=== PATIENT | male | born 1945 | race Caucasian/White ===

== ENCOUNTER 2018-05-24 10:40 | Emergency (ER) | payer MEDICARE ==
[~2018-05-24] VITALS: Ht 175.3 cm; Wt 113.4 kg
--- OUTSIDE RECORDS SUMMARY | 2018-05-24 11:08 | XMS REPORT | Clinical Summary ---
Author Author MAILE [facility] Address Unknown Phone Unavailable Care Team Providers Care Cyber Defense Analyst Name Role Phone Dhaval Bush Jigna PCP Allergies No Known Allergies Medications End Date Status Medication Sig Dispensed Refills Start Date Active acetaminophen-codeine TK 1 T PO Q 4 5 (TYLENOL #3) 300-30 mg H PRF PAIN 8 per tablet Active allopurinol (ZYLOPRIM) TK 1 T PO D 2 300 MG tablet 8 Active diclofenac (VOLTAREN) 75 TK 1 T PO PRN 6 MG EC tablet 8 Active glipiZIDE-metFORMIN TK 1 T PO BID 3 (METAGLIP) 5-500 mg per B MEALS 8 tablet Active mupirocin (BACTROBAN) 2 % LEVON EXT AA 6 ointment BID 8 Active propranolol (INDERAL) 20 TK 1 T PO BID 2 MG tablet 8 Active spironolactone TK 1 T PO D 4 (ALDACTONE) 25 MG tablet 8 Active tamsulosin (FLOMAX) 0.4 Take 1 60 capsule 0 mg Cp24 24 hr capsule capsule (0.4 8 mg total) by mouth nightly. 01/24/2018 traZODone (DESYREL) 100 Take 1 tablet 60 tablet 1 MG tablet (100 mg 8 total) by mouth nightly for 30 days. Active Problems Problem Noted Date Altered mental status, unspecified altered mental status type 12/22/2017 Encounters Care Team Description Date Type Specialty Alejandra Singh MD Rehman, Javed, MD Zalavarria, Jonard Herbias, MD Altered mental status, unspecified altered mental status type (Primary Dx); Contusion of left hip, initial encounter; Contusion of left shoulder, initial encounter; Fall, initial encounter 12/22/2017 [facility] Cardiology - Encounter 12/25/2017 after 05/23/2017 Social History Date Tobacco Use Types Packs/Day Years Used Never Smoker Smokeless Tobacco: Never Used Tobacco Cessation: Counseling Given: No Alcohol Use Drinks/Week oz/Week Comments Yes 4 Shots of 2.4 liquor Sex Assigned at Date Recorded Not on file Industry Job Start Date Occupation Not on file Not on file Not on file Travel End Travel History Travel Start No recent travel history available. Last Filed Vital Signs Time Taken Vital Sign Reading 12/25/2017 7:04 AM CDT Blood Pressure 121/59 12/25/2017 7:04 AM CDT Pulse 74 12/25/2017 7:04 AM CDT Temperature 36.3 C (97.4 F) 12/25/2017 7:04 AM CDT Respiratory Rate 16 12/25/2017 7:04 AM CDT Oxygen Saturation 95% - Inhaled Oxygen - Concentration 12/22/2017 7:41 PM CDT Weight 109.9 kg (242 lb 4.8 oz) 12/22/2017 7:41 PM CDT Height 172.7 cm (5' 8") 12/22/2017 7:41 PM CDT Body Mass Index 36.84 Plan of Treatment Not on file Procedures Comments Procedure Name Priority Date/Time Associated Diagnosis RHYTHM STRIP - SCAN 12/26/2017 1:30 PM CDT POCT-GLUCOSE METER Routine 12/25/2017 7:11 AM CDT POCT-GLUCOSE METER Routine 12/24/2017 9:08 PM CDT POCT-GLUCOSE METER Routine 12/24/2017 5:13 PM CDT POCT-GLUCOSE METER Routine 12/24/2017 11:16 AM CDT POCT-GLUCOSE METER Routine 12/24/2017 7:58 AM CDT POCT-GLUCOSE METER Routine 12/23/2017 9:40 PM CDT POCT-GLUCOSE METER Routine 12/23/2017 5:06 PM CDT STOOL PATH CHARGE Routine 12/23/2017 3:20 PM CDT SHIGA TOXIN SCREEN Routine 12/23/2017 3:20 PM CDT STOOL CULTURE + SHIGA Routine 12/23/2017 TOXIN 3:20 PM CDT FECAL LEUKOCYTES Routine 12/23/2017 3:20 PM CDT C. DIFFICILE GDH TOXIN Routine 12/23/2017 3:20 PM CDT POCT-GLUCOSE METER Routine 12/23/2017 11:36 AM CDT POCT-GLUCOSE METER Routine 12/23/2017 7:53 AM CDT CBC W/PLT COUNT & AUTO Routine 12/23/2017 DIFFERENTIAL 5:11 AM CDT BASIC METABOLIC PANEL (7) Routine 12/23/2017 5:11 AM CDT CBC W/PLT COUNT & AUTO Routine 12/23/2017 DIFFERENTIAL 5:11 AM CDT HEPATIC FUNCTION PANEL Routine 12/23/2017 5:11 AM CDT CBC W/PLT COUNT & AUTO Routine 12/22/2017 DIFFERENTIAL 11:50 PM CDT CBC W/PLT COUNT & AUTO Routine 12/22/2017 DIFFERENTIAL 11:50 PM CDT BLOOD CULTURE Routine 12/22/2017 11:50 PM CDT BLOOD CULTURE Routine 12/22/2017 11:40 PM CDT URINALYSIS W/ MICROSCOPIC Routine 12/22/2017 10:51 PM CDT URINE CULTURE Routine 12/22/2017 10:51 PM CDT POCT-GLUCOSE METER Routine 12/22/2017 9:11 PM CDT US ABDOMEN COMPLETE STAT 12/22/2017 7:[address] BRAIN WITHOUT IV STAT 12/22/2017 CONTRAST 3:[address] LOWER EXTREMITY STAT 12/22/2017 WITHOUT CONTRAST LEFT 3:26 PM CDT CBC W/PLT COUNT & AUTO STAT 12/22/2017 DIFFERENTIAL 1:42 PM CDT HEPATIC FUNCTION PANEL STAT 12/22/2017 1:42 PM CDT CBC W/PLT COUNT & AUTO STAT 12/22/2017 DIFFERENTIAL 1:42 PM CDT BASIC METABOLIC PANEL (7) STAT 12/22/2017 1:42 PM CDT URINALYSIS W/ MICROSCOPIC STAT 12/22/2017 1:41 PM CDT XR CHEST 1 VIEW STAT 12/22/2017 PORTABLE/BEDSIDE 12:23 PM CDT XR SHOULDER LEFT COMPLETE STAT 12/22/2017 MIN 2 VIEWS 12:19 PM CDT XR HIP LEFT 2 VIEW STAT 12/22/2017 12:15 PM CDT XR PELVIS 1 OR 2 VIEWS STAT 12/22/2017 12:10 PM CDT after 05/23/2017 Results * RHYTHM STRIP - SCAN (12/26/2017 1:30 PM CDT) Narrative Performed At * POC-Glucose meter (12/25/2017 7:11 AM CDT) Only the most recent of 10 results within the time period is included. POC-Glucose Meter 100Comment: TESTED AT [facility] 70 - 110 mg/dL [place] [id number] [facility] Specimen Blood Performing Organization Address City/State/Zipcode Phone Number [address] [phone] [facility] * Clostridium difficile GDH Toxin (12/23/2017 3:20 PM CDT) C. Difficle Toxin Negative Negative [facility] C. Difficile GDH Antigen NegativeComment: No indication Negative [facility] of Clostridium difficile [facility] infection and no colonization. Discontinue enteric isolation and therapy. Specimen Stool - Rectum Narrative Performed At Testing performed by [employer] Rapid Cassette Assay.For GDH, published [facility] sensitivity of the assay is 98.7% compared to cytotoxicity testing.For Toxin [facility], published sensitivity is 87.8% and specificity 99.4% compared to cytotoxicity testing. Verification of kit performance was done by the [facility] Microbiology Lab prior to clinical use. Performing Organization Address City/[facility] Cent[facility] Phone Number [address] * STOOL PATH CHARGE (12/23/2017 3:20 PM CDT) Pathogen exam charged Done [facility] Specimen Stool - Rectum Performing Organization Address City/[facility] Centercode Phone Number [place] [phone] [place] [address] * Shiga Toxin Screen (12/23/2017 3:20 PM CDT) Shiga toxin 1 Not detected Not detected [facility] Shiga toxin 2 Not detected Not detected [facility] Specimen Stool - Rectum Performing Organization Address City/[facility] Centercode Phone Number [place] [phone] * Fecal leukocytes (12/23/2017 3:20 PM CDT) Fecal Leukocytes No fecal leukocytes seen No fecal leukocytes seen [facility] Specimen Stool - Rectum Performing Organization Address [facility] Centercode Phone Number [address] [address] [phone] [place] [address] * CBC with platelet count + automated diff (12/23/2017 5:11 AM CDT) Only the most recent of 3 results within the time period is included. WBC 6.6 3.5 - 10.5 K/L [facility] RBC 3.00 (L) 4.63 - 6.08 M/L [facility] Hemoglobin 10.5 (L) 13.7 - 17.5 GM/DL [facility] Hematocrit 31.4 (L) 40.1 - 51.0 % [facility] MCV 104.7 (H) 79.0 - 92.2 fL [facility] MCH 35.0 (H) 25.7 - 32.2 pg [facility] MCHC 33.4 32.3 - 36.5 GM/DL [facility] RDW 14.6 (H) 11.6 - 14.4 % [facility] Platelets 138 (L) 150 - 450 K/CU MM [facility] MPV 9.9 9.4 - 12.4 fL [facility] nRBC 0 0 - 0 /100 WBC [facility] % Neutros 61 % [facility] % Lymphs 23 % [facility] % Monos 15 % [facility] % Eos 0 % [facility] % Baso 1 % [facility] # Neutros 4.04 1.78 - 5.38 K/L [facility] # Lymphs 1.51 1.32 - 3.57 K/L [facility] # Monos 0.95 (H) 0.30 - 0.82 K/L [facility] # Eos 0.01 (L) 0.04 - 0.54 K/L [facility] # Baso 0.04 0.01 - 0.08 K/L [facility] Immature 0 0 - 1 % [facility] Granulocytes-[facility] Specimen Blood - Line, Venous Performing Organization Address City/[facility]/Zipcode Phone Number [facility] [address] [place] [address] [facility] * Hepatic function panel (12/23/2017 5:11 AM CDT) Only the most recent of 2 results within the time period is included. Protein, Total 5.7 (L) 6.0 - 8.3 gm/dL [facility] Albumin 3.0 (L) 3.5 - 5.0 g/dL [facility] Total Bilirubin 2.6 (H) 0.2 - 1.2 mg/dL [facility] Bilirubin, Direct 0.9 (H) 0.1 - 0.5 mg/dL [facility] Alkaline Phosphatase 61 40 - 150 U/L [facility] AST 319 (H) 5 - 34 U/L [facility] ALT 82 (H) 6 - 55 U/L [facility] Specimen Blood - Line, Venous Narrative Performed At Specimen slightly icteric [facility] Performing Organization Address City/[facility]/Zipcode Phone Number [facility] [address] [place] [address] [facility] * Basic Metabolic Panel (12/23/2017 5:11 AM CDT) Only the most recent of 2 results within the time period is included. Sodium 134 (L) 136 - 145 meq/L [facility] Potassium 4.0 3.5 - 5.1 meq/L [facility] Chloride 104 98 - 107 meq/L [facility] CO2 21 (L) 22 - 29 meq/L [facility] BUN 27 (H) 7 - 21 mg/dL [facility] Creatinine 0.78 0.57 - 1.25 mg/dL [facility] Glucose 91 70 - 105 mg/dL [facility] Calcium 8.3 (L) 8.4 - 10.2 mg/dL [facility] EGFR 98Comment: ESTIMATED GFR IS mL/min/1.73 sq m [facility] NOT ACCURATE CREATININE [facility] CLEARANCE IN PREDICTING GLOMERULAR FILTRATION RATE. ESTIMATED GFR IS NOT APPLICABLE FOR DIALYSIS PATIENTS. Specimen Blood - Line, Venous Narrative Performed At Specimen slightly icteric [facility] Performing Organization Address City/[facility] Centercode Phone Number [address] [phone] [facility] * Blood culture (12/22/2017 11:50 PM CDT) Only the most recent of 2 results within the time period is included. Result No growth in 5 days [facility] Specimen Blood - Arm, Right Performing Organization Address [facility]/Zipcode Phone Number [address] [phone] [facility] * Urinalysis w/Microscopic (12/22/2017 10:51 PM CDT) Only the most recent of 2 results within the time period is included. Color, UA Yellow [facility] Clarity, UA Clear [facility] Specific [place], UA 1.022 1.001 - 1.035 [facility] pH, UA 5.5 5.0 - 8.0 [facility] Protein, UA 20 mg/dL (A) Negative [facility] Glucose, UA Negative Negative [facility] Ketones, UA Negative Negative [facility] Bilirubin, UA Negative Negative [facility] Blood, UA Negative Negative [facility] Nitrite, UA Negative Negative [facility] Leukocytes, UA Negative Negative [facility] Urobilinogen, UA 2.0 (H) 0.2 - 1.0 mg/dL [facility] RBC, UA <1 /HPF [facility] WBC, UA 3 /HPF [facility] Mucus Many [facility] Squam Epithel, UA <1 /HPF [facility] Hyaline Casts, UA 7 /LPF [facility] Casts 2 /LPF [facility] Specimen Source Urine, [place] [facility] Specimen Urine - Urine, [place] Performing Organization Address City/State/Zipcode Phone Number [address] * Urine culture (12/22/2017 10:51 PM CDT) Result No growth [facility] Specimen Urine - Urine, [place] Performing Organization Address City/State/Zipcode Phone Number [address] * US abdomen complete (12/22/2017 7:11 PM CDT) Narrative Performed At FINAL REPORT [facility] Ultrasound of the abdomen. Clinical History: HIP PAIN. Comparison study: None. Findings: The liver is normal in echotexture with no focal masses. It measures 15.6 cm in length. There is no evidence of intra or extrahepatic biliary dilatation with the common bile duct measuring six mm. The main portal vein diameter is 1.5 cm. The gallbladder has been resected. The spleen measures 11.4 cm and is unremarkable. The pancreas is within normal limits. No ascites is present. The right kidney measures 10.6 cm and left kidney measures 11.2 cm, both within normal limits. The proximal aorta and IVC are unremarkable. No pleural effusions are seen. Impression: 1. Unremarkable abdominal ultrasound. Signed: Charles Hurtado MD Report Verified Date/Time:12/22/2017 19:52:10 Reading Location: [facility] B1 [id number] Consult Reading Room Procedure Note Interface, External Ris In - 12/22/2017 7:54 PM CDT FINAL REPORT Ultrasound of the abdomen. Clinical History: HIP PAIN. Comparison study: None. Findings: The liver is normal in echotexture with no focal masses. It measures 15.6 cm in length. There is no evidence of intra or extrahepatic biliary dilatation with the common bile duct measuring six mm. The main portal vein diameter is 1.5 cm. The gallbladder has been resected. The spleen measures 11.4 cm and is unremarkable. The pancreas is within normal limits. No ascites is present. The right kidney measures 10.6 cm and left kidney measures 11.2 cm, both within normal limits. The proximal aorta and IVC are unremarkable. No pleural effusions are seen. Impression: 1. Unremarkable abdominal ultrasound. Signed: Charles Hurtado MD Report Verified Date/Time: 12/22/2017 19:52:10 Reading Location: [facility] B1 [id number] Consult Reading Room Performing Organization Address City/State/Zipcode Phone Number [facility] * CT lower extremity without IV contrast left (12/22/2017 3:26 PM CDT) Narrative Performed At FINAL REPORT [facility] CT OF THE LEFT HIP HISTORY: Left hip pain status post fall COMPARISON: Left hip and pelvic radiographs from earlier today TECHNIQUE: CT of the left hip was performed without contrast. Axial images were generated as were multiplanar reformatted images in the sagittal and coronal planes. The examination was performed to conform to our departmental dose optimization program which includes automated exposure control, adjustment of the mA and/or kV according to patient size and/or use of iterative reconstruction techniques. FINDINGS: No fracture or dislocation are visualized in the left hip. There are mild changes of osteoarthritis in the left hip. No pelvic fracture is identified. There are partially imaged degenerative changes in the lower lumbar spine. There is mild symmetric arthrosis of the sacroiliac joints. No destructive bone lesion is identified. No fluid collections are visualized around the left hip. No intrapelvic fluid collection is visualized. Numerous sigmoid diverticula are noted, without specific CT evidence of acute diverticulitis. IMPRESSION: 1. No CT evidence of a left hip fracture. Signed: Pablo Blank MD Report Verified Date/Time:12/22/2017 15:47:42 Reading Location: [facility] Radiology Reading Room Procedure Note Interface, External Ris In - 12/22/2017 3:[address] FINAL REPORT CT OF THE LEFT HIP HISTORY: Left hip pain status post fall COMPARISON: Left hip and pelvic radiographs from earlier today TECHNIQUE: CT of the left hip was performed without contrast. Axial images were generated as were multiplanar reformatted images in the sagittal and coronal planes. The examination was performed to conform to our departmental dose optimization program which includes automated exposure control, adjustment of the mA and/or kV according to patient size and/or use of iterative reconstruction techniques. FINDINGS: No fracture or dislocation are visualized in the left hip. There are mild changes of osteoarthritis in the left hip. No pelvic fracture is identified. There are partially imaged degenerative changes in the lower lumbar spine. There is mild symmetric arthrosis of the sacroiliac joints. No destructive bone lesion is identified. No fluid collections are visualized around the left hip. No intrapelvic fluid collection is visualized. Numerous sigmoid diverticula are noted, without specific CT evidence of acute diverticulitis. IMPRESSION: 1. No CT evidence of a left hip fracture. Signed: Pablo Blank MD Report Verified Date/Time: 12/22/2017 15:47:42 Reading Location: [facility] Radiology Reading Room Performing Organization Address City/State/Zipcode Phone Number [facility] * CT brain without IV contrast (12/22/2017 3:26 PM CDT) Narrative Performed At FINAL REPORT [facility] CT head without contrast 12/22/2017 3:18 PM CLINICAL HISTORY: Confusion/delirium, altered LOC, unexplained HIP PAIN TECHNIQUE: Axial noncontrast CT images through the head were obtained. This examination was performed according to our departmental dose optimization program, which includes automated exposure control, adjustment of the mA and/or kV according to patient size, and/or use of iterated reconstruction technique. COMPARISON: None available FINDINGS: There is no hemorrhage, extra-axial collection, mass, hydrocephalus, or midline shift. There is mild microvascular ischemia in the supratentorial white matter. There is atherosclerotic calcification of the intracranial arterial vasculature. There is generalized parenchymal volume loss. The visualized paranasal sinuses and mastoid air cells are well aerated. The skull is intact. IMPRESSION: No intracranial hemorrhage or mass effect. Chronic appearing microvascular and involutional changes. If concern for acute pathology persists, further evaluation with MRI is recommended. Signed: Haile Dempsey MD Report Verified Date/Time:12/22/2017 15:24:16 Reading Location: [facility] Radiology Reading Room Procedure Note Interface, External Ris In - 12/22/2017 3:26 PM CDT FINAL REPORT CT head without contrast 12/22/2017 3:18 PM CLINICAL HISTORY: Confusion/delirium, altered LOC, unexplained HIP PAIN TECHNIQUE: Axial noncontrast CT images through the head were obtained. This examination was performed according to our departmental dose optimization program, which includes automated exposure control, adjustment of the mA and/or kV according to patient size, and/or use of iterated reconstruction technique. COMPARISON: None available FINDINGS: There is no hemorrhage, extra-axial collection, mass, hydrocephalus, or midline shift. There is mild microvascular ischemia in the supratentorial white matter. There is atherosclerotic calcification of the intracranial arterial vasculature. There is generalized parenchymal volume loss. The visualized paranasal sinuses and mastoid air cells are well aerated. The skull is intact. IMPRESSION: No intracranial hemorrhage or mass effect. Chronic appearing microvascular and involutional changes. If concern for acute pathology persists, further evaluation with MRI is recommended. Signed: Haile Dempsey MD Report Verified Date/Time: 12/22/2017 15:24:16 Reading Location: [facility] Radiology Reading Room Performing Organization Address City/State/Zipcode Phone Number [employer] [facility] * XR chest 1 view portable / bedside (12/22/2017 12:23 PM CDT) Narrative Performed At FINAL REPORT [facility] Chest one view INDICATION: Chest pain COMPARISON: None available IMPRESSION: There is no focal consolidation, vascular congestion, pleural effusion, or pneumothorax. The cardiac silhouette is prominent. The aorta is mildly ectatic/tortuous. There are degenerative spine changes. Signed: Brayden Pollock MD Report Verified Date/Time:12/22/2017 12:41:56 Reading Location: [facility] Radiology Reading Room Procedure Note Interface, External Ris In - 12/22/2017 1:18 PM CDT FINAL REPORT Chest one view INDICATION: Chest pain COMPARISON: None available IMPRESSION: There is no focal consolidation, vascular congestion, pleural effusion, or pneumothorax. The cardiac silhouette is prominent. The aorta is mildly ectatic/tortuous. There are degenerative spine changes. Signed: Brayden Pollock MD Report Verified Date/Time: 12/22/2017 12:41:56 Reading Location: [facility] Radiology Reading Room Performing Organization Address City/State/Zipcode Phone Number [facility] * XR shoulder complete 2 views min left (12/22/2017 12:19 PM CDT) Narrative Performed At FINAL REPORT [facility] LEFT SHOULDER 3 VIEWS HISTORY: Left shoulder pain status post fall COMPARISON: None FINDINGS: AP internal and external rotation images and a transscapular Y image of the left shoulder were obtained. No fracture or dislocation are visualized in the left shoulder. Mild acromioclavicular joint and glenohumeral joint osteoarthritis. IMPRESSION: 1. No fracture or dislocation are visualized in the left shoulder. Signed: Pablo Blank MD Report Verified Date/Time:12/22/2017 13:07:59 Reading Location: [facility] Radiology Reading Room Procedure Note Interface, External Ris In - 12/22/2017 1:19 PM CDT FINAL REPORT LEFT SHOULDER 3 VIEWS HISTORY: Left shoulder pain status post fall COMPARISON: None FINDINGS: AP internal and external rotation images and a transscapular Y image of the left shoulder were obtained. No fracture or dislocation are visualized in the left shoulder. Mild acromioclavicular joint and glenohumeral joint osteoarthritis. IMPRESSION: 1. No fracture or dislocation are visualized in the left shoulder. Signed: Pablo Blank MD Report Verified Date/Time: 12/22/2017 13:07:59 Reading Location: [facility] Radiology Reading Room Performing Organization Address City/State/Zipcode Phone Number [facility] * XR hip 2 views left (12/22/2017 12:15 PM CDT) Narrative Performed At FINAL REPORT [facility] AP PELVIS, LEFT HIP 2 VIEWS HISTORY: Status post fall with left hip and pelvic pain COMPARISON: None FINDINGS: 2 AP images of the pelvis and AP and lateral images of the left hip were obtained. No fracture or dislocation are visualized in the left hip. Small left femoral head osteophytes. No joint space narrowing in the left hip. No pelvic fracture is identified. No abnormalities are visualized in the symphysis pubis. Mild symmetric arthrosis of the sacroiliac joints. IMPRESSION: 1. No evidence of a pelvic fracture. 2. No fracture or dislocation are visualized in the left hip. Signed: Pablo Blank MD Report Verified Date/Time:12/22/2017 13:10:30 Reading Location: [facility] Radiology Reading Room Procedure Note Interface, External Ris In - 12/22/2017 1:31 PM CDT FINAL REPORT AP PELVIS, LEFT HIP 2 VIEWS HISTORY: Status post fall with left hip and pelvic pain COMPARISON: None FINDINGS: 2 AP images of the pelvis and AP and lateral images of the left hip were obtained. No fracture or dislocation are visualized in the left hip. Small left femoral head osteophytes. No joint space narrowing in the left hip. No pelvic fracture is identified. No abnormalities are visualized in the symphysis pubis. Mild symmetric arthrosis of the sacroiliac joints. IMPRESSION: 1. No evidence of a pelvic fracture. 2. No fracture or dislocation are visualized in the left hip. Signed: Pablo Blank MD Report Verified Date/Time: 12/22/2017 13:10:30 Reading Location: [facility] Radiology Reading Room Performing Organization Address City/[facility] Phone Number [facility] * XR pelvis 1 or 2 views (12/22/2017 12:10 PM CDT) Narrative Performed At FINAL REPORT GE RIS AP PELVIS, LEFT HIP 2 VIEWS HISTORY: Status post fall with left hip and pelvic pain COMPARISON: None FINDINGS: 2 AP images of the pelvis and AP and lateral images of the left hip were obtained. No fracture or dislocation are visualized in the left hip. Small left femoral head osteophytes. No joint space narrowing in the left hip. No pelvic fracture is identified. No abnormalities are visualized in the symphysis pubis. Mild symmetric arthrosis of the sacroiliac joints. IMPRESSION: 1. No evidence of a pelvic fracture. 2. No fracture or dislocation are visualized in the left hip. Signed: Pablo Blank MD Report Verified Date/Time:12/22/2017 13:10:30 Reading Location: [facility] Radiology Reading Room Procedure Note Interface, External Ris In - 12/22/2017 1:31 PM CDT FINAL REPORT AP PELVIS, LEFT HIP 2 VIEWS HISTORY: Status post fall with left hip and pelvic pain COMPARISON: None FINDINGS: 2 AP images of the pelvis and AP and lateral images of the left hip were obtained. No fracture or dislocation are visualized in the left hip. Small left femoral head osteophytes. No joint space narrowing in the left hip. No pelvic fracture is identified. No abnormalities are visualized in the symphysis pubis. Mild symmetric arthrosis of the sacroiliac joints. IMPRESSION: 1. No evidence of a pelvic fracture. 2. No fracture or dislocation are visualized in the left hip. Signed: Pablo Blank MD Report Verified Date/Time: 12/22/2017 13:10:30 Reading Location: [facility] Radiology Reading Room Performing Organization Address City/State[facility] Phone Number GE RIS after 05/23/2017 Insurance Payer Benefit Subscriber ID Type Phone Address Plan / Group [facility] xxxxxxxxxxx MEDICARE ADV (Home) [place] [address] Advance Directives For more information, please contact: [facility] [address] [place] [phone] Date Inactivated Comments Code Status Date Activated 12/25/2017 4:46 PM Full Code 12/22/2017 6:07 PM This code status was determined by: Patient
--- OUTSIDE RECORDS SUMMARY | 2018-05-24 11:08 | XMS REPORT ---
Author Author [facility] Address Unknown Phone Unavailable Care Team Providers Care Manager Market Intelligence Name Role Phone Amie KEMP Unavailable Unavailable Problems This patient has no known problems. Allergies, Adverse Reactions, Alerts This patient has no known allergies or adverse reactions. Medications This patient has no known medications. Results Test Description Test Time Test Comments Text Results Atomic Results Result Comments BLOOD CULTURE 2017-12-28 06:00:00 CULTURE (BEAKER) (test ubeq=5029) No growth in 5 days BLOOD [id number] 06:00:00* Test Item Value Reference Range Comments CULTURE (BEAKER) (test ekcl=2704) No growth in 5 days URINE [id number] 10:42:00* Test Item Value Reference Range Comments CULTURE (BEAKER) (test yzev=8698) No growth POCT-GLUCOSE [id number] 08:06:00* Test Item Value Reference Range Comments POC-GLUCOSE METER (BEAKER) (test qmrz=8807) 100 mg/dL 70-110 TESTED AT [address] [address] POCT-GLUCOSE [id number] 21:11:00* Test Item Value Reference Range Comments POC-GLUCOSE METER (BEAKER) (test uicx=3782) 125 mg/dL 70-110 TESTED AT [address] [address] POCT-GLUCOSE [id number] 17:22:00* Test Item Value Reference Range Comments POC-GLUCOSE METER (BEAKER) (test ybwc=9834) 135 mg/dL 70-110 TESTED AT [address] [address] C. DIFFICILE GDH [id number] 16:51:00* Test Item Value Reference Range Comments CDT TOXIN (test nqbe=[id number]) Negative Negative CDT GDH ANTIGEN (test fobb=[id number]) Negative Negative No indication of Clostridium difficile infection and no colonization. Discontinue enteric isolation and therapy. Testing performed by [employer] Rapid Cassette Assay. For GDH, published sensitivity of the assay is 98.7% compared to cytotoxicity testing. For Toxin AB, published sensitivity is 87.8% and specificity 99.4% compared to cytotoxicity testing.Ve rification of kit performance was done by the [facility] Microbiology Lab prior to cl inical use.STOOL PATH [id number] 15:24:00* Test Item Value Reference Range Comments PATHOGEN EXAM CHARGED (BEAKER) (test gwkv=4599) Done SHIGA TOXIN [id number] 13:41:00* Test Item Value Reference Range Comments SHIGA TOXIN 1 (BEAKER) (test lsyq=6216) Not detected Not detected SHIGA TOXIN 2 (BEAKER) (test kppl=4768) Not detected Not detected POCT-GLUCOSE [id number] 11:44:00* Test Item Value Reference Range Comments POC-GLUCOSE METER (BEAKER) (test ujwl=2533) 230 mg/dL 70-110 TESTED AT [address] [address] POCT-GLUCOSE [id number] 08:05:00* Test Item Value Reference Range Comments POC-GLUCOSE METER (BEAKER) (test akmn=5444) 100 mg/dL 70-110 TESTED AT [address] [address] FECAL [id number] 23:59:00* Test Item Value Reference Range Comments FECAL LEUKOCYTES (BEAKER) (test fedk=371) No fecal leukocytes seen No fecal leukocytes seen POCT-GLUCOSE [id number] 21:41:00* Test Item Value Reference Range Comments POC-GLUCOSE METER (BEAKER) (test ggxq=9081) 122 mg/dL 70-110 TESTED AT [address] [address] POCT-GLUCOSE [id number] 17:08:00* Test Item Value Reference Range Comments POC-GLUCOSE METER (BEAKER) (test yewu=3054) 126 mg/dL 70-110 TESTED AT [address] [address] POCT-GLUCOSE [id number] 11:40:00* Test Item Value Reference Range Comments POC-GLUCOSE METER (BEAKER) (test zxhe=4091) 128 mg/dL 70-110 TESTED AT [address] [address] POCT-GLUCOSE [id number] 08:00:00* Test Item Value Reference Range Comments POC-GLUCOSE METER (BEAKER) (test okzl=5301) 97 mg/dL 70-[address] [facility] [address] [facility] [address] BASIC METABOLIC [id number] 06:34:00* Test Item Value Reference Range Comments SODIUM (BEAKER) (test ztmr=048) 134 meq/L 136-145 POTASSIUM (BEAKER) (test akvn=223) 4.0 meq/L 3.5-5.1 CHLORIDE (BEAKER) (test cthl=006) 104 meq/L 98-107 CO2 (BEAKER) (test felm=589) 21 meq/L 22-29 BLOOD UREA NITROGEN (BEAKER) (test nxjd=384) 27 mg/dL 7-21 CREATININE (BEAKER) (test tgki=801) 0.78 mg/dL 0.57-1.25 GLUCOSE RANDOM (BEAKER) (test sbbv=063) 91 mg/dL 70-105 CALCIUM (BEAKER) (test qjaw=930) 8.3 mg/dL 8.4-10.2 EGFR (BEAKER) (test uhje=8889) 98 mL/min/1.73 sq m ESTIMATED GFR IS NOT ACCURATE CREATININE CLEARANCE IN PREDICTING GLOMERULAR FILTRATION RATE. ESTIMATED GFR IS NOT APPLICABLE FOR DIALYSIS PATIENTS. Specimen slightly ictericHEPATIC FUNCTION [id number] 06:34:00* Test Item Value Reference Range Comments TOTAL PROTEIN (BEAKER) (test tkjx=791) 5.7 gm/dL 6.0-8.3 ALBUMIN (BEAKER) (test xndg=5588) 3.0 g/dL 3.5-5.0 BILIRUBIN TOTAL (BEAKER) (test woty=433) 2.6 mg/dL 0.2-1.2 BILIRUBIN DIRECT (BEAKER) (test pzdj=183) 0.9 mg/dL 0.1-0.5 ALKALINE PHOSPHATASE (BEAKER) (test gdjf=530) 61 U/L 40-150 AST (SGOT) (BEAKER) (test ahss=180) 319 U/L 5-34 ALT (SGPT) (BEAKER) (test rdgr=145) 82 U/L 6-55 Specimen slightly ictericCBC W/PLT COUNT & AUTO [id number] 05:49:00 * Test Item Value Reference Range Comments WHITE BLOOD CELL COUNT (BEAKER) (test nmvs=350) 6.6 K/ L 3.5-10.5 RED BLOOD CELL COUNT (BEAKER) (test fmba=572) 3.00 M/ L 4.63-6.08 HEMOGLOBIN (BEAKER) (test fiif=094) 10.5 GM/DL 13.7-17.5 HEMATOCRIT (BEAKER) (test kqmd=129) 31.4 % 40.1-51.0 MEAN CORPUSCULAR VOLUME (BEAKER) (test zean=014) 104.7 fL 79.0-92.2 MEAN CORPUSCULAR HEMOGLOBIN (BEAKER) (test mgpu=750) 35.0 pg 25.7-32.2 MEAN CORPUSCULAR HEMOGLOBIN CONC (BEAKER) (test bspz=768) 33.4 GM/DL 32.3-36.5 RED CELL DISTRIBUTION WIDTH (BEAKER) (test ixfj=897) 14.6 % 11.6-14.4 PLATELET COUNT (BEAKER) (test mkim=068) 138 K/CU MM 150-450 MEAN PLATELET VOLUME (BEAKER) (test xipc=091) 9.9 fL 9.4-12.4 NUCLEATED RED BLOOD CELLS (BEAKER) (test tywk=687) 0 /100 WBC 0-0 NEUTROPHILS RELATIVE PERCENT (BEAKER) (test aimw=967) 61 % LYMPHOCYTES RELATIVE PERCENT (BEAKER) (test fxqv=890) 23 % MONOCYTES RELATIVE PERCENT (BEAKER) (test pnho=432) 15 % EOSINOPHILS RELATIVE PERCENT (BEAKER) (test nbme=247) 0 % BASOPHILS RELATIVE PERCENT (BEAKER) (test hiyb=110) 1 % NEUTROPHILS ABSOLUTE COUNT (BEAKER) (test wavy=613) 4.04 K/ L 1.78-5.38 LYMPHOCYTES ABSOLUTE COUNT (BEAKER) (test jemp=392) 1.51 K/ L 1.32-3.57 MONOCYTES ABSOLUTE COUNT (BEAKER) (test cggn=140) 0.95 K/ L 0.30-0.82 EOSINOPHILS ABSOLUTE COUNT (BEAKER) (test mhrv=475) 0.01 K/ L 0.04-0.54 BASOPHILS ABSOLUTE COUNT (BEAKER) (test wtnm=080) 0.04 K/ L 0.01-0.08 IMMATURE GRANULOCYTES-RELATIVE PERCENT (BEAKER) (test ftah=4794) 0 % 0-1 CBC W/PLT COUNT & AUTO [id number] 00:00:00* Test Item Value Reference Range Comments WHITE BLOOD CELL COUNT (BEAKER) (test iqcp=043) 7.1 K/ L 3.5-10.5 RED BLOOD CELL COUNT (BEAKER) (test rvme=092) 2.88 M/ L 4.63-6.08 HEMOGLOBIN (BEAKER) (test khru=869) 10.3 GM/DL 13.7-17.5 HEMATOCRIT (BEAKER) (test vegv=008) 29.8 % 40.1-51.0 MEAN CORPUSCULAR VOLUME (BEAKER) (test rvtk=763) 103.5 fL 79.0-92.2 MEAN CORPUSCULAR HEMOGLOBIN (BEAKER) (test pscz=179) 35.8 pg 25.7-32.2 MEAN CORPUSCULAR HEMOGLOBIN CONC (BEAKER) (test mrjl=859) 34.6 GM/DL 32.3-36.5 RED CELL DISTRIBUTION WIDTH (BEAKER) (test gzjm=307) 14.5 % 11.6-14.4 PLATELET COUNT (BEAKER) (test brab=609) 123 K/CU MM 150-450 MEAN PLATELET VOLUME (BEAKER) (test fove=037) 9.5 fL 9.4-12.4 NUCLEATED RED BLOOD CELLS (BEAKER) (test gsoh=043) 0 /100 WBC 0-0 NEUTROPHILS RELATIVE PERCENT (BEAKER) (test tfbe=222) 72 % LYMPHOCYTES RELATIVE PERCENT (BEAKER) (test cmgq=415) 15 % MONOCYTES RELATIVE PERCENT (BEAKER) (test ujaa=607) 12 % EOSINOPHILS RELATIVE PERCENT (BEAKER) (test lwsc=145) 0 % BASOPHILS RELATIVE PERCENT (BEAKER) (test oexy=457) 0 % NEUTROPHILS ABSOLUTE COUNT (BEAKER) (test fnla=860) 5.07 K/ L 1.78-5.38 LYMPHOCYTES ABSOLUTE COUNT (BEAKER) (test tmhc=154) 1.08 K/ L 1.32-3.57 MONOCYTES ABSOLUTE COUNT (BEAKER) (test xkdb=734) 0.85 K/ L 0.30-0.82 EOSINOPHILS ABSOLUTE COUNT (BEAKER) (test qqlp=277) 0.00 K/ L 0.04-0.54 BASOPHILS ABSOLUTE COUNT (BEAKER) (test imnu=244) 0.03 K/ L 0.01-0.08 IMMATURE GRANULOCYTES-RELATIVE PERCENT (BEAKER) (test yygy=0792) 1 % 0-1 URINALYSIS W/ [id number] 23:18:00* Test Item Value Reference Range Comments COLOR (BEAKER) (test hqzh=657) Yellow CLARITY (BEAKER) (test oabt=701) Clear SPECIFIC GRAVITY UA (BEAKER) (test cldy=816) 1.022 1.001-1.035 PH UA (BEAKER) (test oswa=514) 5.5 5.0-8.0 PROTEIN UA (BEAKER) (test jixj=450) 20 mg/dL Negative GLUCOSE UA (BEAKER) (test goyb=514) Negative Negative KETONES UA (BEAKER) (test pylj=861) Negative Negative BILIRUBIN UA (BEAKER) (test urbh=430) Negative Negative BLOOD UA (BEAKER) (test qlch=213) Negative Negative NITRITE UA (BEAKER) (test bwnl=752) Negative Negative LEUKOCYTE ESTERASE UA (BEAKER) (test dbim=580) Negative Negative UROBILINOGEN UA (BEAKER) (test uxke=699) 2.0 mg/dL 0.2-1.0 RBC UA (BEAKER) (test abjd=531) < /HPF WBC UA (BEAKER) (test srwv=507) 3 /HPF MUCUS (BEAKER) (test yamk=5008) Many SQUAMOUS EPITHELIAL (BEAKER) (test mymw=039) < /HPF HYALINE CASTS (BEAKER) (test iepn=101) 7 /LPF CASTS (BEAKER) (test rucs=5421) 2 /LPF SOURCE(BEAKER) (test mnum=4298) Urine, [place] POCT-GLUCOSE [id number] 21:24:00* Test Item Value Reference Range Comments POC-GLUCOSE METER (BEAKER) (test muse=9532) 87 mg/dL 70-[address] [facility] [address] [facility] [address] U/S, ABDOMINAL, [id number] 19:52:00Reason for exam:->HIP PAINfell yesterday and todayFINAL REPORT Ultrasound of the abdomen. Clinical History: [...] Impression: 1. Unremarkable abdominal ultrasound. Signed: Charles Hurtadoort Verified Date/Time: 12/22/2017 19:52:10 Reading Location: [address] Consult Reading Room , EXTREMITY, LOWER WITHOUT CONTRAST, [id number] 15:47:00FINAL REPORT CT OF THE LEFT HIP HISTORY: [...] a left hip fracture. Signed: Pablo Blank Verified Date/Time: 12/22/2017 15:47:42 Reading Location: [facility] Radiology Reading Room , BRAIN, WITHOUT [id number] 15:24:00Reason for exam:->HIP PAINfell yesterday and todayWhat is the patient's sedation requirement?->No SedationFINAL REPORT CT head without contrast 12/22/2017 3:18 PM CLINICAL HISTORY: Confusion/delirium, altered LOC, unexplainedHIP PAIN TECHNIQUE: Axial noncontrast CT images through [...] If concern for acute pathology persists, further e valuation with MRI is recommended. Signed: Haile Dempsey Verified Keo e/Time: 12/22/2017 15:24:16 Reading Location: [facility] Radiology Reading R o ALYSIS W/ [id number] 14:30:00* Test Item Value Reference Range Comments COLOR (BEAKER) (test jfak=288) Yellow CLARITY (BEAKER) (test xwkv=186) Clear SPECIFIC GRAVITY UA (BEAKER) (test mdcl=632) 1.019 1.001-1.035 PH UA (BEAKER) (test cdgt=320) 5.5 5.0-8.0 PROTEIN UA (BEAKER) (test knzi=471) 20 mg/dL Negative GLUCOSE UA (BEAKER) (test phoq=856) Negative Negative KETONES UA (BEAKER) (test eeas=859) Negative Negative BILIRUBIN UA (BEAKER) (test djsz=524) Negative Negative BLOOD UA (BEAKER) (test fcam=359) Small Negative NITRITE UA (BEAKER) (test ytkr=406) Negative Negative LEUKOCYTE ESTERASE UA (BEAKER) (test uwkm=786) Negative Negative UROBILINOGEN UA (BEAKER) (test jgsl=716) 0.2 mg/dL 0.2-1.0 RBC UA (BEAKER) (test imaq=130) 0 /HPF WBC UA (BEAKER) (test nlow=979) 2 /HPF MUCUS (BEAKER) (test tjxy=1725) Rare SQUAMOUS EPITHELIAL (BEAKER) (test rpze=364) < /HPF SOURCE(BEAKER) (test nfzg=4993) Urine, Clean Catch BASIC METABOLIC [id number] 14:22:00* Test Item Value Reference Range Comments SODIUM (BEAKER) (test lywf=542) 134 meq/L 136-145 POTASSIUM (BEAKER) (test hxbb=393) 4.3 meq/L 3.5-5.1 CHLORIDE (BEAKER) (test kbij=456) 101 meq/L 98-107 CO2 (BEAKER) (test bqso=670) 23 meq/L 22-29 BLOOD UREA NITROGEN (BEAKER) (test jdfz=798) 21 mg/dL 7-21 CREATININE (BEAKER) (test ejsd=309) 0.79 mg/dL 0.57-1.25 GLUCOSE RANDOM (BEAKER) (test kqgh=779) 98 mg/dL 70-105 CALCIUM (BEAKER) (test ltqh=862) 8.7 mg/dL 8.4-10.2 EGFR (BEAKER) (test dqhz=0607) mL/min/1.73 sq m INSUFFICIENT CLINICAL DATA TO CALCULATE ESTIMATED GFR. Specimen moderately ictericHEPATIC FUNCTION [id number] 14:04:00* Test Item Value Reference Range Comments TOTAL PROTEIN (BEAKER) (test qmei=249) 6.5 gm/dL 6.0-8.3 ALBUMIN (BEAKER) (test mrzn=6576) 3.4 g/dL 3.5-5.0 BILIRUBIN TOTAL (BEAKER) (test mdey=211) 3.6 mg/dL 0.2-1.2 BILIRUBIN DIRECT (BEAKER) (test gdzw=353) 1.1 mg/dL 0.1-0.5 ALKALINE PHOSPHATASE (BEAKER) (test caxo=322) 66 U/L 40-150 AST (SGOT) (BEAKER) (test heph=241) 343 U/L 5-34 ALT (SGPT) (BEAKER) (test seic=017) 84 U/L 6-55 Specimen moderately ictericCBC W/PLT COUNT & AUTO [id number] 13:52:00* Test Item Value Reference Range Comments WHITE BLOOD CELL COUNT (BEAKER) (test rhlx=893) 9.2 K/ L 3.5-10.5 RED BLOOD CELL COUNT (BEAKER) (test vyox=032) 3.22 M/ L 4.63-6.08 HEMOGLOBIN (BEAKER) (test huow=077) 11.3 GM/DL 13.7-17.5 HEMATOCRIT (BEAKER) (test nrgq=211) 33.4 % 40.1-51.0 MEAN CORPUSCULAR VOLUME (BEAKER) (test pdaw=809) 103.7 fL 79.0-92.2 MEAN CORPUSCULAR HEMOGLOBIN (BEAKER) (test icqv=458) 35.1 pg 25.7-32.2 MEAN CORPUSCULAR HEMOGLOBIN CONC (BEAKER) (test infm=750) 33.8 GM/DL 32.3-36.5 RED CELL DISTRIBUTION WIDTH (BEAKER) (test lysc=719) 14.5 % 11.6-14.4 PLATELET COUNT (BEAKER) (test hgqx=662) 150 K/CU MM 150-450 MEAN PLATELET VOLUME (BEAKER) (test enhe=603) 9.4 fL 9.4-12.4 NUCLEATED RED BLOOD CELLS (BEAKER) (test oxlk=248) 0 /100 WBC 0-0 NEUTROPHILS RELATIVE PERCENT (BEAKER) (test ahqb=644) 72 % LYMPHOCYTES RELATIVE PERCENT (BEAKER) (test abyh=976) 15 % MONOCYTES RELATIVE PERCENT (BEAKER) (test hrfg=659) 11 % EOSINOPHILS RELATIVE PERCENT (BEAKER) (test haoz=459) 0 % BASOPHILS RELATIVE PERCENT (BEAKER) (test fwxf=367) 0 % NEUTROPHILS ABSOLUTE COUNT (BEAKER) (test sktt=538) 6.64 K/ L 1.78-5.38 LYMPHOCYTES ABSOLUTE COUNT (BEAKER) (test iihl=988) 1.42 K/ L 1.32-3.57 MONOCYTES ABSOLUTE COUNT (BEAKER) (test ledl=440) 1.05 K/ L 0.30-0.82 EOSINOPHILS ABSOLUTE COUNT (BEAKER) (test zfna=733) 0.01 K/ L 0.04-0.54 BASOPHILS ABSOLUTE COUNT (BEAKER) (test qkmz=546) 0.04 K/ L 0.01-0.08 IMMATURE GRANULOCYTES-RELATIVE PERCENT (BEAKER) (test jngf=3000) 0 % 0-1 RAD, PELVIS, 1 OR 2 [id number] 13:10:00Reason for exam:->HIP PAINfell yesterday and todayFINAL REPORT AP PELVIS, LEFT HIP 2 VIEWS [...] in the left hip. Signed: Pablo Blank Verified Date/Time: 12/22/2017 13:10:30 Reading Location: [facility] Radiology Reading Room , HIP, 2 VIEWS, LEFT 2017-12-22 13:10:00Reason for exam:->HIP PAINfell yesterday and todayShould this be performed at the bedside?->YesFINAL REPORT AP PELVIS, LEFT HIP 2 VIEWS [...] in the left hip. Signed: Pablo Blank Verified Date/Time: 12/22/2017 13:10:30 Reading Location: [facility] Radiology Reading Room , SHOULDER, COMPLETE (MIN 2 VIEWS), [id number] 13:07:00Reason for exam:-> shoulder painfell yesterday and todayShould this be performed at the bedside?-> YesFINAL REPORT LEFT SHOULDER 3 VIEWS HISTORY: Left [...] in the left shoulder. Signed: Pablo Blank Verified Date/Time: 12/22/2017 13:07:59 Reading Location: [facility] Radiology Reading Room , CHEST, 1 VIEW, NON [id number] 12:41:00Reason for exam:->chest painfell yesterday and todayShould this be performed at the bedside?->YesFINAL REPORT Chest one view INDICATION: Chest pain COMPARISON: None available IMPRESSION: There is no focal consolidation, vascular congestion, pleural effusion, or pneumothorax. The cardiac silhouette is prominent. The aorta is mildly ectatic/tortuous. There are degenerative spine changes. Signed: Brayden Pollock MDReport Verified Date/Time: 12/22/2017 12:41:56 Reading Location: [facility] Radiology Reading Room
--- NOTE | 2018-05-24 12:32 | Diagnostic Imaging Report ---
EXAMINATION: RIBS LEFT SIDED RADIOGRAPHS WITH CXR COMPARISON: None FINDINGS: TUBES and LINES: None. LUNGS: Lungs are well inflated. Lungs are clear. There is no evidence of pneumonia or pulmonary edema. PLEURA: No pleural effusion or pneumothorax. HEART AND MEDIASTINUM: The cardiomediastinal silhouette is unremarkable. BONES AND SOFT TISSUES: No acute osseous lesion. Soft tissues are unremarkable. Dedicated left rib radiographs demonstrate no evidence of displaced fracture. UPPER ABDOMEN: No free air under the diaphragm. IMPRESSION: No evidence of displaced rib fracture or pneumothorax. Clear lungs. Signed by: Dr. Paz Butler MD on 05/24/2018 12:28 PM
--- NOTE | 2018-05-24 12:35 | Diagnostic Imaging Report ---
Left humerus radiographs - three views COMPARISON: None FINDINGS: No evidence of fracture, malalignment, or soft tissue abnormality. Mild left glenohumeral and moderate left acromioclavicular joint degenerative changes with joint space narrowing and subchondral sclerosis. IMPRESSION: No acute radiographic abnormality. 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 Signed by: Dr. Paz Butler MD on 05/24/2018 12:32 PM
== END 2018-05-24 12:50 | disposition home or self-care (01) ==
LOC: FSED 10:40
DX: S20.212A Contusion of left front wall of thorax, initial encounter (principal); S40.022A Contusion of left upper arm, initial encounter; W01.0XXA Fall on same level from slipping, tripping and stumbling without subsequent striking against object, initial encounter; Y92.007 Garden or yard of unspecified non-institutional (private) residence as the place of occurrence of the external cause
CPT/HCPCS: 71101; 99283